=== PATIENT | female | born 1980 | race Caucasian/White ===

== ENCOUNTER → 2017-04-10 | Outpatient (CLI) | payer OTHER | LOC: FIMAGING 13:46 | PROVIDERS: ATTEND Obstetrics & Gynecology | DX: N63 Unspecified lump in breast (principal); Z80.3 Family history of malignant neoplasm of breast | CPT/HCPCS: G0204 ==

== ENCOUNTER → 2017-04-30 | Outpatient (CLI) | payer OTHER ==
[~2017-04-30] MED LIST: BUPIVACAINE 0.5% 10 ML SDV ONE; LIDO/EPI 1% **Not for Epidural 20 ML MDV ONE; LIDOCAINE 1% 300 MG/30 ML SDV ONE; THROMBIN (BOVINE) 5,000 UNIT VIAL TP ONE
== END ==
LOC: FIMAGING 07:06
PROVIDERS: ATTEND Obstetrics & Gynecology
DX: D24.2 Benign neoplasm of left breast (principal); N60.02 Solitary cyst of left breast
CPT/HCPCS: G0206

== ENCOUNTER 2018-10-27 16:52 | Emergency (ER) | payer OTHER ==
[2018-10-27 17:08] VITALS: BP 125/76
--- NOTE | 2018-10-27 17:11 | EDPHY ---
H & P Stated Complaint: sore throat for 2 days Time Seen by Provider: 10/27/18 16:55 HPI/ROS: 37-year-old female presents complaining of sore throat for approximately 2.5 days, some fever and chills, no nasal congestion no cough. Her nephew was recently diagnosed with strep. Review of systems As per HPI General no fever no chills no weakness HEENT no eye pain no eye discharge. No eye redness, positive sore throat Respiratory no cough, no shortness of breath Cardiac no chest pain, no peripheral edema GI no abdominal pain, no diarrhea, no constipation, no nausea, no vomiting no flank pain, no hematuria, no dysuria Musculoskeletal no myalgias, no joint pain Heme no easy bruising, no easy bleeding Endo no polyuria, no polydipsia Skin no rashes, no pruritus Neuro no syncope, no dizziness, no headaches Psych is no suicidal ideation, no homicidal ideation Source: Patient Exam Limitations: No limitations - Personal History LMP (Females 10-55): 15-21 Days Ago Current Tetanus Diphtheria and Acellular Pertussis (TDAP): Yes Tetanus Vaccine Date: 2009 - Medical/Surgical History Hx Asthma: No Hx Chronic Respiratory Disease: No Hx Diabetes: Yes Hx Cardiac Disease: No Hx Renal Disease: No Hx Cirrhosis: No Hx Alcoholism: No Hx HIV/AIDS: No Hx Splenectomy or Spleen Trauma: No Other PMH: hypothyroid, , gestational diabetes. - Family History Significant Family History: No pertinent family hx - Social History Smoking Status: Never smoked Alcohol Use: None Drug Use: None - Physical Exam Exam: 37-year-old female Alert and oriented in no acute distress nontoxic appearance, afebrile Atraumatic normocephalic Extraocular muscles intact, anicteric Neck-supple, positive anterior cervical lymphadenopathy mildly tender to palpation Oropharynx positive enlarged tonsils, erythematous, no uvular deviation, no purulent exudate, tolerating own secretions, no trismus Lungs clear to auscultation bilaterally Heart regular rate and rhythm Abdomen normoactive bowel sounds soft nontender Extremities no cyanosis clubbing edema Skin no rash Constitutional: Initial Vital Signs Temperature (C) 36.5 C 10/27/18 17:04 Heart Rate 69 10/27/18 17:04 Respiratory Rate 14 10/27/18 17:04 Blood Pressure 125/76 H 10/27/18 17:04 O2 Sat (%) 95 10/27/18 17:04 O2 Delivery Mode Room Air Allergies/Adverse Reactions: No Known Allergies Allergy (Verified 10/27/18 17:03) Home Medications: Medication Instructions Recorded Levothyroxine Sodium 25 mcg PO 08/17/15 Penicillin V Potassium [Penicillin 500 mg PO TID 9 Days #27 tablet 10/27/18 VK] Spironolactone 10/27/18 Medical Decision Making ED Course/Re-evaluation: Patient seen and evaluated for sore throat. Rapid strep positive Impression Acute streptococcal pharyngitis Plan Penicillin VK three times daily times 10 days Acetaminophen as needed for fever or pain Ibuprofen as needed for fever or pain Return if worsening Differential Diagnosis: Differential diagnosis considered but not limited to: Viral pharyngitis, streptococcal pharyngitis, URI, bronchitis, mononucleosis - Data Points Medications Given: Discontinued Medications Penicillin V Potassium (Pen Vk 250 Mg Prepack#6) 1 btl TAKEHOME EDNOW ONE PRN Reason: Protocol Stop: 10/27/18 17:17 Last Admin: 10/27/18 17:32 Dose: 1 btl Point of Care Test Results: Strep Strep Throat Swab Collection 10/27/18 Date Strep Throat Swab Swab 17:10 Collection Time Strep Result Detected Departure - Departure Disposition: Home, Routine, Self-Care Clinical Impression: Acute pharyngitis, Acute streptococcal pharyngitis Condition: Good Instructions: Pharyngitis (ED) Referrals: Nicki Palumbo MD [Primary Care Provider] - As per Instructions Prescriptions: Penicillin V Potassium [Penicillin VK] 500 mg PO TID 9 Days #27 tablet
[2018-10-27] MEDS ORDERED: PENICILLIN VK 250MG PREPACK#6 BTL TAKEHOME ONE (17:16)
== END 2018-10-27 17:37 | disposition home or self-care (01) ==
LOC: CED 16:52
DX: J02.0 Streptococcal pharyngitis (principal); E03.9 Hypothyroidism, unspecified

== ENCOUNTER → 2019-02-16 | Outpatient (CLI) | payer OTHER | LOC: FIMAGING 08:06 | PROVIDERS: ATTEND Obstetrics & Gynecology | DX: Z12.31 Encounter for screening mammogram for malignant neoplasm of breast (principal) ==